=== PATIENT | male | born 1985 | race Hispanic/Latino ===

== ENCOUNTER 2016-12-21 02:53 | Emergency (ER) | payer OTHER ==
[~2016-12-21] VITALS: Ht 170.2 cm; Wt 89.9 kg
[2016-12-21] MEDS ORDERED: HALOPERIDOL 5 MG/ML (HALDOL) 1 ML AMP IM ONE (03:35)
[2016-12-21] MEDS ORDERED: LORazepam 1 MG (ATIVAN) TABLET PO ONE (03:35)
--- NOTE | 2016-12-21 03:46 | NUR ---
PER DR ALVARADO PT ALLOWED TO TAKE 1 OF HIS TRAZADONE 150 MG. HE IS SUPPOSE TO TAKE IT AT HS BUT DIDN'T
--- NOTE | 2016-12-21 04:10 | NUR ---
PT DISCHARGED BACK TO [facility] WITH [facility]. THEY HAVE HIS MEDICATIONS (TRAZADONE) AND SCRIPTS. INSTRUCTIONS GIVEN TO PT AND TO THE [employer].
--- NOTE | 2016-12-21 04:22 | NUR ---
HALDOL WAS GIVEN IM SO NO IV START/STOP TIMES
[2016-12-21 04:23] VITALS: BP 110/69
== END 2016-12-21 04:25 ==
LOC: ED 02:54
DX: F41.1 Generalized anxiety disorder (principal); F41.9 Anxiety disorder, unspecified; T43.596A Underdosing of other antipsychotics and neuroleptics, initial encounter; T43.216A Underdosing of selective serotonin and norepinephrine reuptake inhibitors, initial encounter
CPT/HCPCS: 96372; 99283; J1630

== ENCOUNTER → 2016-12-21 | Outpatient (CLI) | payer SELFPAY | LOC: EMS 02:45 | DX: Z53.20 Procedure and treatment not carried out because of patient's decision for unspecified reasons (principal) ==

== ENCOUNTER 2017-02-07 20:54 | Emergency (ER) | payer OTHER ==
[~2017-02-07] VITALS: Ht 170.2 cm; Wt 80.7 kg
--- NOTE | 2017-02-07 21:17 | NUR ---
MOTHER AT BEDSIDE. REPORT GIVEN TO BRET QUINTANILLA RN
[2017-02-07] MEDS ORDERED: HALOPERIDOL 5 MG/ML (HALDOL) 1 ML AMP IM ONE (21:20)
[2017-02-07 22:00] LABS: BASOPHILS % (AUTO) 1 % (0-2); EOSINOPHILS # (AUTO) 0.1 10^3uL; EOSINOPHILS % (AUTO) 1 % (0-4); LYMPHOCYTES # (AUTO) 2.6 X10^3; MEAN CORPUSCULAR HEMOGLOBIN 30.1 PG (26.0-34.0); MEAN CORPUSCULAR HGB CONC 34.9 g/dL (31.0-37.0); MEAN CORPUSCULAR VOLUME 86 FL (80-100); MEAN PLATELET VOLUME 10.8 FL (6.0-9.5); MONOCYTES # (AUTO) 1.2 X10^3; MONOCYTES % (AUTO) 12 % (3-11); NEUTROPHILS # (AUTO) 6.3 X10^3; NEUTROPHILS % (AUTO) 61 % (51-67); PLATELET COUNT 260 10^3uL (150-450); WHITE BLOOD COUNT 10.22 10^3uL (4.0-11.0)
[2017-02-07 22:09] LABS: ANION GAP 21.6 MEQ/L (3-15); BUN/CREATININE RATIO 9 (10-20)
[2017-02-07 22:10] LABS: ALKALINE PHOSPHATASE 99 U/L (38-126); CALCULATED IONIZED CALCIUM 3.9 mg/dL (3.8-4.6)
[2017-02-07] MEDS ORDERED: ONDANSETRON 4 MG (ZOFRAN) ORAL DISSOLVE TAB PO ONE (22:15)
--- NOTE | 2017-02-07 22:17 | NUR ---
PT states that he has been having whispering in his head. The whispers don't say anything specific and are not telling him to do anything. They just keep whispering and it scares him and keeps him up at night. He is afraid to go to sleep and feels anxious. Pt was very aggitated upon arrival and was cursing and yelling for people to leave him alone. Dr. Castillo spoke to him and he agreed to have Haldol.
[2017-02-07] MEDS ORDERED: HALOPERIDOL 5 MG (HALDOL) TABLET PO ONE (22:20)
[2017-02-07] MEDS ORDERED: LORazepam 1 MG (ATIVAN) TABLET PO ONE (22:30)
[2017-02-07] MEDS ORDERED: SODIUM CHLORIDE FLUSH 3 ML SYR IV PRN (23:05)
[2017-02-07] MEDS ORDERED: SODIUM CHLORIDE FLUSH 10 ML SYR IV PRN (23:05)
[2017-02-07 23:13] LABS: BILIRUBIN,URINE Negative (Negative); CLARITY,URINE Clear; COLOR,URINE Yellow; GLUCOSE, URINE (UA) Negative (Negative); LEUKOCYTE ESTERASE ,URINE Negative (Negative); PH,URINE 5.5 (5.0 - 8.0); UROBILINOGEN,URINE 0.2 mg/dL (0.2-1.0)
[2017-02-07 23:13] LABS: AMPHETAMINE SCREEN, URINE Negative (Negative); CANNABINOID SCREEN, URINE Negative (Negative); METHAMPHETAMINE SCREEN URINE S NEGATIVE (NEGATIVE); OPIATE SCREEN URINE Negative (Negative); PROPOXYPHENE STAT NEGATIVE (NEGATIVE)
--- NOTE | 2017-02-07 23:53 | NUR ---
FAXED FACESHEET AND NURSE NOTES INCLUDING LABS TO [place] AT [facility].
[2017-02-08] MEDS ORDERED: LORazepam 2 MG/ML (ATIVAN) 1 ML VIAL IV ONE ×2 (00:25→05:35)
--- NOTE | 2017-02-08 01:49 | NUR ---
Alexandr with [facility] screend the pt via Zoom. Reports pt is going to be admitted to [facility] voluntarily. Bonnie Cueva RN with [facility] called for report. Report given. SHe asked to have a Banana Bag hung and to call once it is complete to give ETA of arrival.
[2017-02-08] MEDS ORDERED: MAGNESIUM SULFATE 1GM VIAL 2 GM, THIAMINE INJ 100 MG, MULTIVITAMIN INJ 10 ML in D5LR 1,... IV SCH (02:00)
[2017-02-08] MEDS ORDERED: THIAMINE 100 MG/ML (VITAMIN B1) 2 ML VIAL ONE (02:14)
[2017-02-08] MEDS ORDERED: MAGNESIUM SULFATE 1 GM/2 ML VIAL ONE (02:15)
[2017-02-08] MEDS ORDERED: MULTIVITAMINS (MVI) 2 5 ML VIALS IV ONE (02:15)
--- NOTE | 2017-02-08 03:00 | NUR ---
[facility] advised they would transport pt at 0700. Notified Dr. Castillo and the mother of pt.
--- NOTE | 2017-02-08 03:06 | NUR ---
Pt sleeping. Took mother a recliner, blanket and pillow. Advised mother that [facility] would be here to transport to [place] at 0700.
[2017-02-08] MEDS ORDERED: ACETAMINOPHEN 500 MG TAB (TYLENOL) PO ONE (05:00)
[2017-02-08] MEDS ORDERED: ACETAMINOPHEN 500 MG TAB (TYLENOL) ONE (05:02)
--- NOTE | 2017-02-08 05:25 | NUR ---
PT REQUESTING SOMETHING FOR HIS HEADACHE. TYLENOL 1000MG ORDERED PER MD. NOTE: MEDICATION ORDER WOULD NOT CROSS OVER TO THE [facility], SO RN PULLED THE MEDICATION OUT UNDER STOCK MED. NURSE CHARTED ADMINISTRATION TYLENOL 1000MG.
--- NOTE | 2017-02-08 07:21 | NUR ---
[facility] here, patient report given. Patient using toilet.
--- NOTE | 2017-02-08 07:21 | NUR ---
[facility] has arrived
[2017-02-08 07:26] VITALS: BP 163/108
== END 2017-02-08 07:34 ==
LOC: ED 20:55
DX: F31.2 Bipolar disorder, current episode manic severe with psychotic features (principal); R44.0 Auditory hallucinations; F10.129 Alcohol abuse with intoxication, unspecified; Y90.6 Blood alcohol level of 120-199 mg/100 ml
CPT/HCPCS: 36415; 80053; 80307; 80320; 80329; 81003; 83036; 85025; 96361; 96365; 96366; 96372; 96375; 96376; 99285; J1630; J2060; J3411; J3475; J7030; 99291

== ENCOUNTER → 2017-02-26 | Outpatient (CLI) | payer OTHER ==
[2017-02-26 13:19] VITALS: BP 123/87
== END ==
LOC: MHUC 10:35
PROVIDERS: ATTEND Physician Assistant
DX: M79.604 Pain in right leg (principal); G62.9 Polyneuropathy, unspecified; F31.89 Other bipolar disorder
CPT/HCPCS: 99213